=== PATIENT | female | born 1930 | race Two or more races ===

== ENCOUNTER 2017-07-07 10:25 | Inpatient (IN) | payer MEDICAID, MEDICARE, OTHER ==
[~2017-07-07] VITALS: Ht 147.3 cm; Wt 47.6 kg
--- NOTE | 2017-07-07 10:30 | NUR ---
B RA 878 FROM HOME C/O COUGH C CONGESTION AND POOR APPETITE X1 WEEK RECRUITER. VSS. SEEN BY FOR EVAL. SAFETY AND COMFORT MEASURES PROVIDED. WILL MONITOR. FAMIYL MEMBER REMAINS AT BS.
--- NOTE | 2017-07-07 10:55 | NUR ---
CODE SEPSIS CALLED
[2017-07-07] MEDS ORDERED: ACETAMINOPHEN ES 500 MG TABLET PO ONE (11:00)
[2017-07-07] MEDS ORDERED: IV NS 0.9% 1,000 ML BAG IV ONE (11:00)
[2017-07-07 11:14] LABS: BASOPHILS % (AUTO) 0.1 % (0.0-2.0); HEMATOCRIT 37 % (33-45); HEMOGLOBIN 12.4 g/dL (11.5-14.8); LYMPHOCYTES # (AUTO) 0.9 /CMM (0.8-4.8); LYMPHOCYTES % (AUTO) 11.1 % (20.0-44.0); MEAN CORPUSCULAR HEMOGLOBIN 29 PG (26.0-33.0); MEAN CORPUSCULAR HGB CONC 33 g/dl (31.0-36.0); MEAN CORPUSCULAR VOLUME 89 fL (82-100); MONOCYTES # (AUTO) 0.2 /CMM (0.1-1.30); MONOCYTES % (AUTO) 2.8 % (2.0-12.0); NEUTROPHILS # (AUTO) 7.3 /CMM (1.8-8.9); PLATELET COUNT (AUTO) 135 /CMM (150-450); RDW COEFFICIENT OF VARIATION 13.4 (11.5-15.0); RED BLOOD CELL COUNT(AUTO) 4.21 MIL/uL (4.0-5.2); WHITE BLOOD COUNT (AUTO) 8.5 K/uL (4.3-11.0)
--- NOTE | 2017-07-07 11:18 | NUR ---
IV ACCESS STARTED. BLOOD AND CULTURES DRAW. FC INITIATED. PT MEDICATED ORDERED.
[2017-07-07] MEDS ORDERED: ACETAMINOPHEN ES 500 MG TABLET ONE (11:20)
[2017-07-07] MEDS ORDERED: LAMO25TA PO (11:28)
[2017-07-07] MEDS ORDERED: OLAN7.5T3 PO (11:28)
--- NOTE | 2017-07-07 11:30 | NUR ---
URBANO AT BS.
[2017-07-07 11:33] LABS: TROPONIN I < 0.017 ng/mL (0.00-0.056)
[2017-07-07 11:36] LABS: ALANINE AMINOTRANSFERASE 40 U/L (12-78); ALKALINE PHOSPHATASE 81 U/L (46-116); ASPARTATE AMINOTRANSFERASE 37 U/L (15-37); BILIRUBIN,DIRECT 0.1 mg/dL (0.0-0.2); BILIRUBIN,TOTAL 0.7 mg/dL (0.2-1.0); CALCIUM, SERUM 9.2 mg/dL (8.5-10.1); CARBON DIOXIDE 25 mmol/L (21-32); CHLORIDE 102 mmol/L (98-107); CREATININE 1.2 mg/dL (0.6-1.3); GLUCOSE 119 mg/dL (74-106); POTASSIUM 3.5 mmol/L (3.5-5.1); SODIUM SERUM 140 mmol/L (136-145); TOTAL PROTEIN, SERUM 7.2 g/dL (6.4-8.2); UREA NITROGEN, BLOOD 20 mg/dL (7-18)
[2017-07-07 11:45] LABS: INR 0.96 (0.87-1.13)
[2017-07-07 11:58] LABS: APPEARANCE,URINE CLEAR (CLEAR); BILIRUBIN,URINE NEGATIVE (NEGATIVE); BLOOD, URINE TRACE-INTA Ery/uL (NEGATIVE); COLOR,URINE YELLOW (YELLOW); KETONES,URINE TRACE (NEGATIVE); LEUKOCYTE ESTERASE ,URINE NEGATIVE (NEGATIVE); NITRITE, URINE NEGATIVE (NEGATIVE); PROTEIN,URINE TRACE mg/dl (NEGATIVE); UGLUCOSE NEGATIVE (NEGATIVE); UROBILINOGEN,URINE 0.2 EU/dL (0.2)
[2017-07-07] MEDS ORDERED: VANCOMYCIN 1 GM in IV D5W 250 ML IV ONE (12:30)
[2017-07-07] MEDS ORDERED: MEROPENEM 1 G in IV NS 0.9% 100 ML IV ONE (12:30)
[2017-07-07 12:48] LABS: BACTERIA,URINE Rare /HPF (None Seen); RBC,URINE 0-2 /HPF (0-2); SQUAMOUS EPITHELIAL CELL,UR Rare /HPF (None Seen); WBC,URINE 0-2 /HPF (0-3)
--- NOTE | 2017-07-07 12:57 | NUR ---
REPORT GIVEN TO ALLISON CERVANTES FOR TELE [id number].
--- NOTE | 2017-07-07 12:58 | NUR ---
CHEMICAL PROCESS ENGINEER REPORT NOTE TELEPHONE REPORT RECEIVED FROM BILLY GOOD.
[2017-07-07 13:20] VITALS: BP 110/63
--- NOTE | 2017-07-07 13:20 | NUR ---
STREET AND BUILDING DECORATOR ADMITTING NOTE PATIENT ARRIVED TO THE UNIT VIA GURNEY ACCOMPANIED BY PACKAGING SPECIALIST, COLOR ROOM ATTENDANT AND THE FAMILY. PATIENT IS A/O X1, FORGETFUL, ANXIOUS AND CONFUSED. ATTEMPTED TO PULL OUT THE IV LINE. PATIENT EDUCATED NOT TO PULL ON THE LINES AND FAMILY AT THE BEDSIDE IS INSTRUCTED TO KEEP REORIENTING THE PATIENT AND REMIND THE PATIENT NOT TO PULL ON LINES. PATIENT IS ASSISTED TO BED. BED IS LOCKED, IN LOWEST POSITION, SIDE RAILS UP X3, BED ALARM IS ON. PATIENT'S SON IS AT THE BEDSIDE. CALL LIGHT WITHIN REACH. PATIENT/FAMILY EDUCATED TO CALL FOR ASSISTANCE USING THE CALL LIGHT. FAMILY VERBALIZED FULL UNDERSTANDING OF THE TEACHINGS. WILL CONTINUE TO ASSESS/MONITOR THE PATIENT THROUGHOUT THE SHIFT.
[2017-07-07] MEDS ORDERED: HYDROCODONE/APAP 5/325MG 1 EACH TABLET PO PRN (14:30)
[2017-07-07] MEDS ORDERED: MAGNESIUM HYDROXIDE 30 ML UDC PO PRN (14:30)
[2017-07-07] MEDS ORDERED: Z GUARD REMEDY 2 OZ OINT TP PRN (14:30)
[2017-07-07] MEDS ORDERED: ONDANSETRON HCL/PF 4 MG/2 ML VIAL IVP PRN (14:30)
[2017-07-07] MEDS ORDERED: MAG HYDROX/AL HYDROX/SIMETH 30 ML UDC PO PRN (14:30)
[2017-07-07] MEDS ORDERED: ZOLPIDEM TARTRATE 5 MG TABLET PO PRN (14:30)
[2017-07-07] MEDS ORDERED: ACETAMINOPHEN 325 MG TABLET PO PRN (14:30)
[2017-07-07 16:00] VITALS: BP 121/69
[2017-07-07] MEDS ORDERED: HALOPERIDOL LACTATE INJ 5 MG/ML VIAL IM ONE (16:00)
[2017-07-07] MEDS: IV D5/0.45 NACL 1,000 ML IV PRN (16:01)
[2017-07-07] MEDS: CEFTRIAXONE 1 G in IV D5W 50 ML IV SCH (16:04)
--- NOTE | 2017-07-07 16:12 | NUR ---
CUSTOMER RETENTION SPECIALIST NOTE PATIENT IS INCONSOLABLE. ATTEMPTING TO GET OUT OF THE BED, CRYING AND SCREAMING "I NEED TO BE CLEANED" TRYING TO PULL OUT THE CATHETER AND THE IV LINE. DR. CHEATHAM AT THE BEDSIDE. PER DR. CHEATHAM ORDER ADMINISTER HALDOL 0.5 MG ONCE NOW. WILL CARRY OUT THE ORDER ONCE THE DOSE IS VERIFIED BY THE PHARMACY. PATIENT IS ASSISTED TO THE BED. ANNA LI IS CURRENTLY AT THE BEDSIDE.
--- NOTE | 2017-07-07 16:23 | NUR ---
BOATS RENTER NOTE HALDOL ADMINISTERED ORDERED. PATIENT IS IN BED. ANNA LI AT THE BEDSIDE
--- NOTE | 2017-07-07 19:30 | NUR ---
CHEESE SPRAYER OPENING NOTES PT IS IN BED SLEEPING, NO SIGNS OF SOB OR DISTRESS. BREATHING EVENLY AND UNLABORED ON RA. SITTER AT BEDSIDE. TELE MONITOR SHOWS SR66. PARKS CATHETER IS INTACT, WILL CONTINUE TO MONITOR FOR PATENCY. IV ACCESS IS INTACT AND INFUSING. BED IS IN LOW AND LOCKED POSITION, BED ALARM IS ON. WILL CONTINUE TO MONITOR PT.
--- NOTE | 2017-07-07 19:36 | NUR ---
CHICLE GRINDER FEEDER CLOSING NOTE BEDSIDE SBAR REPORT GIVEN. PATIENT IS A/O X1, FORGETFUL, ANXIOUS AND CONFUSED. PATIENT IS ASLEEP IN BED, EASILY AWAKEN. BED IS LOCKED, IN LOWEST POSITION, SIDE RAILS UP X3, BED ALARM IS ON. CALL LIGHT WITHIN REACH. PATIENT EDUCATED TO CALL FOR ASSISTANCE USING THE CALL LIGHT. ENDORSED TO THE MACHINE PULLER FOR CORTEZ.
[2017-07-07 20:00] VITALS: BP 108/64
[2017-07-07 20:06] VITALS: BP 108/64
--- NOTE | 2017-07-07 20:20 | NUR ---
FLAME DEGREASER NOTES CHARGE NURSE FAXED PT INFO TO [facility] FOR EVAL TOMORROW.
[2017-07-08] VITALS (7 sets, daily range): BP systolic 101–126; BP diastolic 60–76
--- NOTE | 2017-07-08 06:37 | NUR ---
TELEPHONE RECORDER CLOSING NOTES PT IS IN BED RESTING, BREATHING EVENLY AND UNLABORED. NO SOB OR DISTRESS. NO ACUTE CHANGES THROUGHOUT MY SHIFT. TELE MONITOR SHOWS SR-[id number]. SITTER AT BEDSIDE. BED IS IN LOW AND LOCKED POSITION, WILL ENDORSE TO DAYSHIFT.
[2017-07-08 07:08] LABS: BASOPHILS % (AUTO) 0.2 % (0.0-2.0); EOSINOPHILS % (AUTO) 0.1 % (0.0-6.0); HEMATOCRIT 33 % (33-45); LYMPHOCYTES # (AUTO) 1.3 /CMM (0.8-4.8); LYMPHOCYTES % (AUTO) 15.4 % (20.0-44.0); MEAN CORPUSCULAR HEMOGLOBIN 30 PG (26.0-33.0); MEAN CORPUSCULAR HGB CONC 33 g/dl (31.0-36.0); MEAN CORPUSCULAR VOLUME 90 fL (82-100); MONOCYTES # (AUTO) 0.3 /CMM (0.1-1.30); MONOCYTES % (AUTO) 3.7 % (2.0-12.0); NEUTROPHILS # (AUTO) 6.9 /CMM (1.8-8.9); NEUTROPHILS % (AUTO) 80.6 % (43.0-81.0); PLATELET COUNT (AUTO) 135 /CMM (150-450); RDW COEFFICIENT OF VARIATION 13.3 (11.5-15.0); RED BLOOD CELL COUNT(AUTO) 3.68 MIL/uL (4.0-5.2); WHITE BLOOD COUNT (AUTO) 8.6 K/uL (4.3-11.0)
[2017-07-08 07:31] LABS: ALANINE AMINOTRANSFERASE 30 U/L (12-78); ALBUMIN 2.4 g/dL (3.4-5.0); ALKALINE PHOSPHATASE 85 U/L (46-116); ASPARTATE AMINOTRANSFERASE 27 U/L (15-37); BILIRUBIN,TOTAL 0.5 mg/dL (0.2-1.0); CALCIUM, SERUM 8.7 mg/dL (8.5-10.1); CARBON DIOXIDE 24 mmol/L (21-32); CHLORIDE 109 mmol/L (98-107); CREATININE 0.9 mg/dL (0.6-1.3); GLUCOSE 100 mg/dL (74-106); MAGNESIUM 1.7 mg/dL (1.8-2.4); PHOSPHORUS 2.1 mg/dL (2.5-4.9); POTASSIUM 3.2 mmol/L (3.5-5.1); SODIUM SERUM 143 mmol/L (136-145); TOTAL PROTEIN, SERUM 6.1 g/dL (6.4-8.2); UREA NITROGEN, BLOOD 12 mg/dL (7-18)
[2017-07-08 07:34] LABS: CHOLESTEROL 114 mg/dL (<200); HDL CHOLESTEROL 46 mg/dL (40-60); LDL 53 mg/dL (0-99); TRIGLYCERIDES 59 mg/dL (30-150)
--- NOTE | 2017-07-08 08:00 | NUR ---
DOCK SUPERINTENDENT OPENINGS NOTES PT IS STABLE AND RESTING IN BED. A/OX1, PT IS CONFUSED. NO S/S OF DISTRESS OR SOB. PT DOES NOT APPEAR TO BE IN PAIN AT THIS TIME. PT IS ON RA, WITH O2 SAT WNL. PER FAMILY REQUEST, PT IS TO BE ON NPO EXCEPT MEDS, ALTHOUGH PT FAILED SWALLOW EVAL ON 07/07. MEDS TO BE GIVEN THROUGH G-TUBE. G-TUBE PATENT, 10 ML OF RESIDUAL FOUND. PARKS CATH IN PLACE. PER TERADATA DEVELOPER REPORT, PT IS TO RECEIVE PSYCH CONSULT AND SWALLOW EVAL. ADDITIONALLY, FAMILY WOULD LIKE THE PT NOT TO BE ON ANY FORM OF PHYSICAL RESTRAINTS. IV ACCESS LOCATED ON RIGHT AC, 20G RUNNING D5 1/2 NS @ 75 ML/HR. SAFETY MEASURES IN PLACE, CALL LIGHT WITHIN REACH. WILL CONTINUE TO MONITOR.
[2017-07-08] MEDS: Magnesium 1GM/D5W 100ML PREMIX 100 ML IV SCH ×2 (09:58→12:03)
[2017-07-08] MEDS: POTASSIUM CHLORIDE 20 MEQ POWDER PACKET PO SCH ×2 (12:04→12:07)
[2017-07-08] MEDS: CEFTRIAXONE 1 G in IV D5W 50 ML IV SCH (14:09)
[2017-07-08] MEDS ORDERED: K PHOS NEUTRAL 250 MG TABLET PO ONE (15:30)
--- NOTE | 2017-07-08 15:33 | NUR ---
RN NOTES RIGHT AC PERIPHERAL IV FOUND TO BE DISLODGED, CATHETER REMOVED. 20 G PERIPHERAL IV INSERTED IN LEFT FOREARM.
[2017-07-08] MEDS: IV D5/0.45 NACL 1,000 ML IV PRN (17:08)
--- NOTE | 2017-07-08 18:39 | NUR ---
RN CLOSING NOTES PT IS IN BED RESTING. A/OX2, SITTER IS AT BEDSIDE. NO S/S OF DISTRESS OR SOB. PT HAS NO C/O PAIN AT THIS TIME. TELE MONITOR READING SINUS RHYTHM THROUGHOUT THE DAY. RECEIVED NOTIFICATION FROM DEVELOPMENT SPEC OF RECOMMENDATION TO ADD A MULTI VITAMIN AND THIAMINE TO MEDICATION LIST. MAGNESIUM, POTASSIUM AND PHOS REPLACED TODAY. PARKS CATHETER STILL REMAINS PATENT. SAFETY MEASURES IN PLACE, CALL LIGHT WITHIN REACH. WILL ENDORSE TO SCRUBBER MACHINE TENDER FOR CORTEZ.
--- NOTE | 2017-07-08 19:30 | NUR ---
RN NOTES RECEIVED PATIENT UP IN CHAIR; SITTER AT BEDSIDE. AO X 1, ABLE TO MAKE NEEDS KNOWN. NO ACUTE DISTRESS NOTED. DENIES ANY PAIN AT THIS TIME. EASILY UPSET; REASSURANCE GIVEN. TELE READING SINUS HR 76. IV SITE PATENT, INTACT; IVF INFUSING ORDERED. PARKS CATHETER PATENT, INTACT; DRAINING CLEAR YELLOW URINE. SAFETY REMINDERS GIVEN. LOW BED IN USE WITH BILATERAL UPPER SIDE RAILS UP. CALL LIGHT BUTTON WITHIN EASY REACH. WILL CONTINUE TO MONITOR.
[2017-07-08] MEDS ORDERED: OLANZAPINE 2.5 MG TABLET PO SCH ×2 (20:00→20:30)
[2017-07-08] MEDS ORDERED: OLANZAPINE 2.5 MG TABLET PO PRN ×2 (20:00→20:30)
[2017-07-08] MEDS ORDERED: OLANZAPINE 2.5 MG TABLET ONE (20:24)
--- NOTE | 2017-07-08 22:30 | NUR ---
RN NOTES DR. ORTEGA MADE AWARE OF PATIENT'S PRODUCTIVE COUGH WITH NEW ORDER FOR ROBITUSSIN 10 ML PO Q 6 HOURS PRN; NOTED AND CARRIED OUT.
[2017-07-09] VITALS: BP 122/69
[2017-07-09] MEDS ORDERED: GUAIFENESIN/CODEINE 10 ML UDC PO PRN (01:00)
[2017-07-09 04:00] VITALS: BP 104/55
--- NOTE | 2017-07-09 06:14 | NUR ---
RN NOTES PATIENT ASLEEP, EASILY AROUSABLE. RESPIRATIONS EVEN. NO SIGNS OF PAIN NOTED. DUE MEDS GIVEN WITH NO ASE NOTED. NEEDS ATTENDED. KEPT CLEAN AND DRY. SAFETY PRECAUTIONS AND COMFORT MEASURES IN PLACE. WILL GIVE REPORT TO DAY SHIFT FOR CONTINUITY OF CARE.
[2017-07-09 07:31] LABS: CALCIUM, SERUM 8.1 mg/dL (8.5-10.1); CARBON DIOXIDE 23 mmol/L (21-32); CHLORIDE 112 mmol/L (98-107); CREATININE 0.7 mg/dL (0.6-1.3); GLUCOSE 102 mg/dL (74-106); MAGNESIUM 1.9 mg/dL (1.8-2.4); PHOSPHORUS 2.9 mg/dL (2.5-4.9); POTASSIUM 3.4 mmol/L (3.5-5.1); SODIUM SERUM 145 mmol/L (136-145); UREA NITROGEN, BLOOD 10 mg/dL (7-18)
--- NOTE | 2017-07-09 07:46 | NUR ---
RN NOTES RECEIVED PT. PT IS STABLE AND RESTING IN BED. A/OX1, PT IS CONFUSED. SITTER AT BEDSIDE. NO S/S OF RESPIRATORY DISTRESS OR SOB. PT DOES NOT APPEAR TO BE IN PAIN AT THIS TIME. IV ACCESS LOCATED ON LEFT FOREARM 22G RUNNING D5 1/2 NS AT 75 ML/HR. PARKS CATH IN PLACE AND PATENT. PER HELMET HAT SWEATBAND PUNCHER REPORT, PT IS NON COMPLIANT WITH PO MEDICATIONS. WILL F/U WITH PT AND FAMILY AND PERFORM MEDICATION COMPLIANCE TEACHING. SAFETY MEASURES IN PLACE, CALL LIGHT WITHIN REACH. WILL CONTINUE TO MONITOR.
[2017-07-09] MEDS ORDERED: POTASSIUM CHLORIDE 20 MEQ POWDER PACKET PO SCH (11:30)
--- NOTE | 2017-07-09 12:44 | NUR ---
RN NOTES KLOR CON ADMINISTERED. BARCODE UNABLE TO SCAN.
[2017-07-09] MEDS ORDERED: OLANZAPINE 2.5 MG TABLET PO SCH ×2 (13:00→20:00)
--- NOTE | 2017-07-09 13:29 | NUR ---
RN NOTES PT IS NON COMPLIANT WITH PO MEDICATIONS. PT FOUND POCKETING MEDICATIONS IN HER CHEEK ON PREVIOUS NIGHT 07/08/17. PER REQUEST OF FAMILY, MEDICATIONS TO BE GIVEN CRUSHED AND DILUTED IN JUICE/TEA/COFFEE WITH MEALS. ZYPREXA DUE AT 1300 PULLED FROM [employer] AND WILL BE GIVEN THE NEXT TIME THAT THE PT REQUESTS FLUIDS.
[2017-07-09] MEDS: CEFTRIAXONE 1 G in IV D5W 50 ML IV SCH (14:40)
--- NOTE | 2017-07-09 15:14 | NUR ---
RN NOTES PARKS CATHETER D/C PER ORDER FROM Elie HEALY NP. PT REFUSED LUNCH STATING THAT " I'M NOT HUNGRY, BREAKFAST WAS NOT TOO LONG AGO. SPOKE WITH DAUGHTER, PATRICK, AND SON, ZAHRA FLOR. SON WILL BE ARRIVING ON UNIT TO PROVIDE FOOD FOR PT AND TO ASSIST PT WITH FEEDING.
[2017-07-09] MEDS ORDERED: OLANZAPINE 2.5 MG TABLET PO PRN (18:00)
--- NOTE | 2017-07-09 18:30 | NUR ---
RN NOTES PT IS IN BEDSIDE CHAIR RESTING. A/OX2, PT IS CONFUSED. PRIMARILY CITIZEN OF [place] SPEAKING, HOWEVER UNDERSTANDS AND SPEAKS SOME [place]. SITTER IS AT BEDSIDE. PT HAS BECOME FREQUENTLY AGITATED THROUGHOUT THE DAY, PRIMARILY IN THE LATE AFTERNOON. ZYPREXA PRN ORDERED, HOWEVER PT IS NON COMPLIANT WITH PO MEDICATIONS. PER FAMILY REQUEST, NO RESTRAINTS TO BE USED ON PT. REQUEST THAT PO MEDICATIONS BE DILUTED IN JUICE, COFFEE OR TEA IN ORDER FOR COMPLIANCE. F/C REMOVED PER MD ORDER. SAFETY MEASURES IN PLACE, CALL LIGHT WITHIN REACH. WILL ENDORSE TO CUSTOMER CONTACT SPECIALIST FOR CORTEZ.
--- NOTE | 2017-07-09 19:20 | NUR ---
MS/RN OPENING NOTES PT AWAKE, SITTING QUIETLY IN THE CHAIR IN HER ROOM. A/OX1, ON ROOM AIR, BREATHING EVEN AND UNLABORED. SITTER AT BEDSIDE. NEEDS REDIRECTION. NO S/S OF SOB OR PAIN. APPEARS COMFORTABLE AND SMILING. IV TO LFA IN PLACE, REFUSED TO BE FLUSHED. BED IN LOW/LOCKED POSITION WITH CALL LIGHT IN REACH. SIDE RAILS UPX2. WILL CONTINUE TO MONITOR
--- NOTE | 2017-07-09 19:45 | NUR ---
MS/RN NOTES PT BECOMING AGITATED. WALKING AROUND THE HALLS ASKING TO BE LEFT ALONE. WANTS TO SIT IN CHAIR BY HERSELF. EVENTUALLY REDIRECTED TO ROOM AND PT SITTING IN CHAIR THEN MOVED TO EDGE OF THE BED. WANTS TO BE LEFT ALONE, REFUSING ASSESSMENT AND VITALS SIGNS. DOES NOT WANT TO BE TOUCHED.
--- NOTE | 2017-07-09 20:48 | NUR ---
MS/RN NOTES ANOTHER BELL MAKER ABLE TO CONVINCE PT TO TAKE VITALS SIGNS.
[2017-07-09 20:50] VITALS: BP 137/87
[2017-07-09] MEDS ORDERED: OLANZAPINE 10 MG TABLET PO SCH (22:00)
[2017-07-09] MEDS ORDERED: LamoTRIgine 25 MG TABLET PO SCH (22:00)
--- NOTE | 2017-07-09 22:32 | NUR ---
MS/RN NOTES PT SITTING QUIETLY IN CHAIR JUST OUTSIDE BEDROOM. SITTER NEARBY. PT REQUESTING SOME WATER. PM MEDICATIONS CRUSHED AND MIXED WITH WATER. PT TOOK WITH NO COMPLICATIONS.
--- NOTE | 2017-07-10 07:15 | NUR ---
MS RN OPENING NOTES RECEIVED PT FROM NIGHTSHIFT NURSE RESTING IN BED AND IN STABLE CONDITION. PT IS A/O X1-2. NO SOB OR SIGNS OF DISTRESS NOTED. BREATHING IS EVEN AND UNLABORED. PT IS COOPERATIVE AND NOT AGITATED AT THIS TIME. IV NOTED ON LEFT FA 22G INFUSING D5 1/2NS. IV IS PATENT AND INTACT. NO REDNESS OR SIGNS OF INFILTRATION NOTED. BED IN LOW LOCKED POSITION, SIDE RAILS UP X2, CALL LIGHT WITHIN REACH. SITTER AT BEDSIDE. WILL CONTINUE TO MONITOR.
--- NOTE | 2017-07-10 07:20 | NUR ---
MS/RN CLOSING NOTES PT ASLEEP, RESTING COMFORTABLY IN BED. SITTER AT BEDSIDE. ON ROOM AIR BREATHING EVEN AND UNLABORED. NO APPARENT DISTRESS NOTED AND NO COMPLAINTS OF PAIN. PT REFUSED ASSESSMENT DURING SHIFT. NEEDS REPETITIVE REDIRECTION. PT SLEPT APPROX 6 HOURS LAST NIGHT. IV TO LFA IN PLACE. NO SIGNIFICANT CHANGES OVERNIGHT. BED IN LOW/LOCKED POSITION WITH CALL LIGHT IN REACH. SIDE RAILS UPX3. ENDORSED TO AM SHIFT CORTEZ.
[2017-07-10 08:00] VITALS: BP 133/80
[2017-07-10] MEDS ORDERED: THIAMINE HCL 100 MG TABLET PO SCH (09:00)
[2017-07-10] MEDS ORDERED: MULTIVITAMINS,THERAGRAN 1 UDTAB TABLET PO SCH (09:00)
[2017-07-10 09:27] LABS: BASOPHILS % (AUTO) 0.5 % (0.0-2.0); EOSINOPHILS % (AUTO) 0.7 % (0.0-6.0); HEMATOCRIT 38 % (33-45); HEMOGLOBIN 12.5 g/dL (11.5-14.8); LYMPHOCYTES # (AUTO) 1.4 /CMM (0.8-4.8); LYMPHOCYTES % (AUTO) 28.4 % (20.0-44.0); MEAN CORPUSCULAR HEMOGLOBIN 30 PG (26.0-33.0); MEAN CORPUSCULAR HGB CONC 33 g/dl (31.0-36.0); MEAN CORPUSCULAR VOLUME 90 fL (82-100); MONOCYTES # (AUTO) 0.3 /CMM (0.1-1.30); MONOCYTES % (AUTO) 6.3 % (2.0-12.0); NEUTROPHILS # (AUTO) 3.1 /CMM (1.8-8.9); NEUTROPHILS % (AUTO) 64.1 % (43.0-81.0); PLATELET COUNT (AUTO) 284 /CMM (150-450); RDW COEFFICIENT OF VARIATION 12.8 (11.5-15.0); RED BLOOD CELL COUNT(AUTO) 4.18 MIL/uL (4.0-5.2); WHITE BLOOD COUNT (AUTO) 4.8 K/uL (4.3-11.0)
[2017-07-10 09:45] LABS: CALCIUM, SERUM 9.3 mg/dL (8.5-10.1); CARBON DIOXIDE 27 mmol/L (21-32); CHLORIDE 108 mmol/L (98-107); GLUCOSE 140 mg/dL (74-106); MAGNESIUM 1.8 mg/dL (1.8-2.4); PHOSPHORUS 2.8 mg/dL (2.5-4.9); POTASSIUM 3.7 mmol/L (3.5-5.1); SODIUM SERUM 146 mmol/L (136-145); UREA NITROGEN, BLOOD 10 mg/dL (7-18)
[2017-07-10] MEDS ORDERED: OLAN2.5T3 PO (11:21)
[2017-07-10] MEDS ORDERED: LEVO500T15 PO (11:21)
[2017-07-10] MEDS ORDERED: LEVOFLOXACIN (500MG) 500 MG TABLET PO SCH (12:00)
--- NOTE | 2017-07-10 13:23 | NUR ---
MS BUSINESS CONTINUITY SPECIALIST NOTES PT WAS DISCHARGED FROM UNIT IN STABLE CONDITION. ALL NEEDS WERE MET DURING SHIFT AND ORDERS CARRIED OUT ACCORDINGLY. ALL DUE MEDS GIVE. DISCHARGE INSTRUCTIONS WERE PROVIDED TO PATIENT'S SON BASIA. PRESCRIPTION WAS ALSO GIVEN TO BASIA. PT LEFT WITH ALL HER BELONGINGS. SHE WAS SAFELY WHEELED OUT OF THE HOSPITAL AND TO HER LYFT VEHICLE BY THE ANGLE DOZER OPERATOR. IV WAS SUCCESSFULLY REMOVED WITHOUT ANY COMPLICATIONS
[2017-07-11] MEDS ORDERED: LEVOFLOXACIN (250MG) 250 MG TABLET PO SCH (12:00)
== END 2017-07-10 13:30 | disposition home or self-care (01) | DRG 469 ==
LOC: ER 10:27 → TELE 12:36 → MED 07-09 09:22
PROVIDERS: ADMIT Internal Medicine; ATTEND Internal Medicine
DX: N17.0 Acute kidney failure with tubular necrosis (principal); J15.6 Pneumonia due to other Gram-negative bacteria; G93.40 Encephalopathy, unspecified; J15.9 Unspecified bacterial pneumonia; G30.9 Alzheimer's disease, unspecified; D69.6 Thrombocytopenia, unspecified; F02.80 Dementia in other diseases classified elsewhere, unspecified severity, without behavioral disturbance, psychotic disturbance, mood disturbance, and anxiety; Z88.8 Allergy status to other drugs, medicaments and biological substances; Z90.710 Acquired absence of both cervix and uterus; F31.9 Bipolar disorder, unspecified; J98.11 Atelectasis
CPT/HCPCS: 36415; 71010-TC; 80048-TC; 80053-TC; 80061-TC; 80076-TC; 81000-TC; 83605-TC; 83735-TC; 84100-TC; 84484-TC; 85025-TC; 85730-TC; 87040-TC; 87081-TC; 87086-TC; 87400; 92611-TC; A4606; J0696; J1630; J2185; J3370; J3475; J3490; J7030; J7060; Z7610

== ENCOUNTER 2018-01-17 14:38 | Inpatient (IN) | payer OTHER ==
[~2018-01-17] VITALS: Ht 162.6 cm; Wt 49.9 kg
[~2018-01-17 14:38] MED LIST: LAMO25TA PO; LEVO500T2 PO; OLAN2.5T3 PO; OLAN7.5T3 PO
--- NOTE | 2018-01-17 14:40 | NUR ---
[id number] FROM HOME: BIZARRE BEHAVIOR. Hx OF DEMENTIA. NAD NOTED. RR EVEN AND UNLABORED. PT PLACED IN GOWN AND MONITOR. PENDING MD STEVE.
[2018-01-17] MEDS ORDERED: LORAZEPAM INJ 2 MG/ML VIAL ONE (14:46)
[2018-01-17] MEDS ORDERED: IV NS 0.9% 500 ML BAG IV ONE (15:00)
[2018-01-17] MEDS ORDERED: LORAZEPAM INJ 2 MG/ML VIAL IV ONE (15:00)
[2018-01-17 15:02] LABS: BASOPHILS % (AUTO) 0.7 % (0.0-2.0); EOSINOPHILS % (AUTO) 0.3 % (0.0-6.0); HEMATOCRIT 35 % (33-45); LYMPHOCYTES % (AUTO) 27.7 % (20.0-44.0); MEAN CORPUSCULAR HGB CONC 34 g/dl (31.0-36.0); MEAN CORPUSCULAR VOLUME 88 fL (82-100); MONOCYTES # (AUTO) 0.3 /CMM (0.1-1.30); MONOCYTES % (AUTO) 9.2 % (2.0-12.0); NEUTROPHILS # (AUTO) 2.5 /CMM (1.8-8.9); NEUTROPHILS % (AUTO) 62.1 % (43.0-81.0); PLATELET COUNT (AUTO) 176 /CMM (150-450); RDW COEFFICIENT OF VARIATION 13.1 (11.5-15.0); WHITE BLOOD COUNT (AUTO) 3.8 K/uL (4.3-11.0)
--- NOTE | 2018-01-17 15:02 | NUR ---
URINE OBTAINED SENT TO LAB FOR PICKUP
[2018-01-17 15:16] LABS: CALCIUM, SERUM 8.6 mg/dL (8.5-10.1); CARBON DIOXIDE 22 mmol/L (21-32); CHLORIDE 106 mmol/L (98-107); GLUCOSE 166 mg/dL (74-106); POTASSIUM 3.3 mmol/L (3.5-5.1); SODIUM SERUM 141 mmol/L (136-145); UREA NITROGEN, BLOOD 17 mg/dL (7-18)
[2018-01-17 15:22] LABS: TROPONIN I < 0.017 ng/mL (0.00-0.056)
[2018-01-17 15:26] LABS: APPEARANCE,URINE SL CLOUDY (CLEAR); BILIRUBIN,URINE NEGATIVE (NEGATIVE); BLOOD, URINE 1+ Ery/uL (NEGATIVE); COLOR,URINE YELLOW (YELLOW); KETONES,URINE NEGATIVE (NEGATIVE); LEUKOCYTE ESTERASE ,URINE NEGATIVE (NEGATIVE); NITRITE, URINE NEGATIVE (NEGATIVE); PH,URINE 5.5 (5.0-8.0); PROTEIN,URINE NEGATIVE (NEGATIVE); UGLUCOSE NEGATIVE (NEGATIVE); UROBILINOGEN,URINE 0.2 EU/dL (0.2)
[2018-01-17 15:32] LABS: THYROID STIMULATING HORMONE 2.266 uIU/mL (0.358-3.74)
--- NOTE | 2018-01-17 15:41 | NUR ---
VIRGINIE CALLED SHE WILL BE HERE IN AN HOUR
[2018-01-17 15:43] LABS: BACTERIA,URINE None seen /HPF (None Seen); SQUAMOUS EPITHELIAL CELL,UR Few /HPF (None Seen); WBC,URINE 0-2 /HPF (0-3)
[2018-01-17 16:04] LABS: ALCOHOL, BLOOD < 3 mg/dL (0-0)
[2018-01-17] MEDS ORDERED: OLAN2.5T3 PO (18:31)
--- NOTE | 2018-01-17 18:37 | NUR ---
PT TRANSFERRED TO GPS IN STABLE CONDITION
--- NOTE | 2018-01-17 18:47 | NUR ---
RECEIVED PT. FROM ER ([facility]). PT. ARRIVED ON THE UNIT AT 1847 VIA HOSPITAL BED. PATIENT ADMITTED ON A 5150 HOLD DUE TO GD, DTS, DTO. PER HOLD PT. HAS AGITATED, PARANOID AND EXTREMELY CONFUSED. THE 5150 WAS RECEIVED AND THE DOCUMENTATION APPEARS TO REFLECT THE PRESENTATION OF THE PATIENT. PATIENT IS CURRENTLY LAYING ON HER BED AWAKE, HAS NO S/S OE COMPLAINTS OF PAIN AT THID TIME. ALSO SO SIGNS OF ACUTE DISTRESS NOTED AT THIS TIME. PATIENT'S BREATHING IS UNLABORED WITH EQUAL FALL AND RISE OF THE CHEST. PATIENT IS ORIENTED X1 ON ROOM AIR. PATIENT HAS BEEN ASSISTED WITH TURNING AND REPOSITIONING Q2HRS AND PRN FOR COMFORT AND CIRCULATION. THE PATIENT HAS NO NEEDS AT THIS TIME. PATIENT IS NOTED TO BE DEPRESSED, WITHDRAWN, DISORGANIZED, AGITATED AND ANXIOUS AT THIS TIME. DENIED SI/HI AT THIS TIME. SKIN ASSESSMENT COMPLETED AND PICTURED PLACED IN THE PT'S CHART. THE PATIENT IS UNDER THE CARE OF DR. GERBER AND THE MEDICAL CARE OF DR. YANCEY. THE PATIENT'S BELONGING WERE INVENTORIED AND CHECKED FPR CONTRABANDS. PATIENT'S ADVANCED DIRECTIVE PREFERENCES, IMMUNIZATIONS QUESTIONNAIRE AND NECESSARY PAPERWORK ARE COMPLETED AND PLACED IN THE PT'S CHART. PATIENT WAS ORIENTED TO THE ROOM, FLOOR AND STAFF. EDUCATED PT. ON THE USAGE OF THE CALL ROJAS. BED IS LOCKED AND LOW, BEDSIDES RAILS ARE UP X2 FOR SAFETY. WILL CONTINUE TO MONITOR Q15MNS, WITH THE HELP OF STAFF, FOR SAFETY.
[2018-01-17] MEDS ORDERED: ACETAMINOPHEN 325 MG TABLET PO PRN (19:00)
[2018-01-17] MEDS ORDERED: MAGNESIUM HYDROXIDE 30 ML UDC PO PRN (19:00)
[2018-01-17] MEDS ORDERED: MAG HYDROX/AL HYDROX/SIMETH 30 ML UDC PO PRN (19:00)
[2018-01-17 20:28] VITALS: BP 99/57
[2018-01-17] MEDS: LORAZEPAM 0.5 MG TABLET PO PRN (22:26)
--- NOTE | 2018-01-17 22:26 | NUR ---
GPS NOTE C/O AGITATION, ANXIETY. LORAZEPAM 1 MG GIVEN ORDERED. WILL REEVALUATE PATIENT AND CONTINUE TO MONITOR FOR SAFETY.
[2018-01-18] MEDS: TEMAZEPAM 7.5 MG CAPSULE PO PRN ×2 (00:04→21:54)
--- NOTE | 2018-01-18 00:04 | NUR ---
GPS NOTE C/O " UNABLE TO FALL ASLEEP. PER PT REQUEST RESTORIL 7.5 MG PO GIVEN ORDERED. WILL CONTINUE TO MONITOR PT. FOR SAFETY.
[2018-01-18 08:00] VITALS: BP 109/92
--- NOTE | 2018-01-18 08:56 | NUR ---
Dr. Kay notified that the pt. is under his service.
--- NOTE | 2018-01-18 09:12 | NUR ---
Dr. Love made aware that pt. is not under Dr. Kay and under his service and said ok.
[2018-01-18 09:42] LABS: CHOLESTEROL 155 mg/dL (<200); HDL CHOLESTEROL 71 mg/dL (40-60); LDL 79 mg/dL (0-99); TRIGLYCERIDES 43 mg/dL (30-150)
[2018-01-18 09:43] LABS: ALANINE AMINOTRANSFERASE 23 U/L (12-78); ALBUMIN 3.3 g/dL (3.4-5.0); ALKALINE PHOSPHATASE 90 U/L (46-116); ASPARTATE AMINOTRANSFERASE 19 U/L (15-37); BILIRUBIN,TOTAL 0.4 mg/dL (0.2-1.0); CALCIUM, SERUM 8.3 mg/dL (8.5-10.1); CARBON DIOXIDE 26 mmol/L (21-32); CHLORIDE 106 mmol/L (98-107); CREATININE 0.9 mg/dL (0.6-1.3); GLUCOSE 102 mg/dL (74-106); POTASSIUM 3.6 mmol/L (3.5-5.1); SODIUM SERUM 141 mmol/L (136-145); TOTAL PROTEIN, SERUM 7.1 g/dL (6.4-8.2); UREA NITROGEN, BLOOD 14 mg/dL (7-18)
--- NOTE | 2018-01-18 12:40 | NUR ---
SW attempted to contact pts daughter Alejandra [phone] for collateral information. Pts daughter was busy and requested to call back.
--- NOTE | 2018-01-18 12:41 | NUR ---
SW attempted to contact pts marcus Sharma [phone] for collateral information. No answer SW left voicemail.
--- NOTE | 2018-01-18 12:42 | NUR ---
SW received phone call from Krunal Kelly [phone] option 1, N aftercare coordinator to provide SW with his contact info to assist with after care planning once pt is discharged.
--- NOTE | 2018-01-18 13:55 | NUR ---
Pt. is anxious and irritable, ativan 1 mg po not administered pt. is drowsy. Will return and have other RN to witness.
--- NOTE | 2018-01-18 14:11 | NUR ---
At 1330 lost balance while walking in the hallway. Pt. hit her buttocks, pt. able to stand up with assistance. Denied any pain. v/s taken: BP 132/100, UT 70, RR 18, temp 97.9 and oxygen sat 100%. Body check done and no bruise, no abrasions and no wound noted. Addendum: 01/18/18 at 1512 by LOKI LEMA RN Lost balance and fell.
--- NOTE | 2018-01-18 15:16 | NUR ---
Dr. Love made aware of the incident and said to observe. supervisor cooler service notified and son Zachary in the unit and made aware.
--- NOTE | 2018-01-18 15:43 | NUR ---
INITIAL DISCHARGE PLAN: Per pts daughter Alejandra [phone] pt has a home to return to [address] [facility] [id number] . However, pts daughter wants placement options. YUDY informed pts daughter that pt was approved for 6 hospital days by [facility] and that SNF placement would need to be approved by insurance. Pts daughter stated that pt has Medicare/[employer] insurance that has been effective as of January. YUDY advised pts daughter to speak with admissions regarding insurance coverage. SW will help form a safe and proper discharge in collaboration with .
[2018-01-18 16:00] VITALS: BP 100/80
[2018-01-18] MEDS ORDERED: risperiDONE 0.25 MG TABLET PO SCH (18:00)
--- NOTE | 2018-01-18 19:30 | NUR ---
GPS RN NOTE, RECEIVED PATIENT AWAKE AND IN BED, NO S/S OR COMPLAINTS OF PAIN AT THIS TIME. PATIENT DISPLAYING NO S/S OF APPARENT DISTRESS AT THIS TIME. PATIENT BREATHING IS UNLABORED WITH EQUAL RISE AND FALL OF THE CHEST. PATIENT ALERT AND ORIENTED X 1 WITH A SPO2 98%. PATIENT IS MED COMPLIANT, DISORGANIZED, CONFUSED, SOMALI SPEAKING ONLY, ISOLATIVE, COOPERATIVE, NEEDS REORIENTATION. PATIENT DENIES SUICIDE IDEATIONS AND HOMICIDAL IDEATIONS AT THIS TIME. PATIENT ASSISTED WITH TURNING AND REPOSITIONING Q2HR AND PRN FOR COMFORT AND CIRCULATION. PATIENT HAS NO NEEDS AT THIS TIME. PATIENT EDUCATED ON THE USE OF THE CALL ROJAS. PATIENT BED SIDE RAILS UP X2 FOR SAFETY, BED IS LOCKED AND LOW WILL CONTINUE TO MONITOR AND MAINTAIN AND MAINTAIN SAFETY.
[2018-01-18 20:30] VITALS: BP 111/65
--- NOTE | 2018-01-18 21:54 | NUR ---
GPS RN NOTE, PATIENT HAS A COMPLAINT OF NOT BEING ABLE TO SLEEP AND IS REQUESTING RESTORIL AT THIS TIME. PATIENT VITAL SIGNS ARE STABLE. GAVE RESTORIL 7.5 MG PO HS. WILL REASSESS FOR INSOMNIA AND I WILL CONTINUE TO MONITOR THIS PATIENT.
[2018-01-19 08:00] VITALS: BP 140/77
[2018-01-19] MEDS: risperiDONE 0.25 MG TABLET PO SCH ×2 (09:19→17:14)
[2018-01-19] MEDS: RIVASTIGMINE TARTRATE 1.5 MG CAPSULE PO SCH ×2 (09:19→21:01)
--- NOTE | 2018-01-19 15:21 | NUR ---
OFFICE VISIT: pts daughter Alejandra [phone] spoke with SW regarding discharge plan and concerns with medication being administered to pt. Pts daughter stated to SW that pt will return home with 8 hour care that has been established for pt Mon-Fri. Pts daughter asked SW to speak to MD regarding medication changes and discharge as she has attempted to contact and has been unsuccessful.
[2018-01-19 15:54] VITALS: BP 108/77
--- NOTE | 2018-01-19 18:55 | NUR ---
gps bid clerk: psych visit son and daughter here. seen by dr. stuart with new orders. orders acknowledged. md spoke to family and updated plan of care. pt is on 14 days hold now.
[2018-01-19 19:58] VITALS: BP 110/69
[2018-01-19] MEDS: risperiDONE 1 MG TABLET PO SCH (21:01)
[2018-01-20 08:00] VITALS: BP 103/53
[2018-01-20] MEDS: RIVASTIGMINE TARTRATE 1.5 MG CAPSULE PO SCH ×2 (08:50→20:49)
[2018-01-20] MEDS: risperiDONE 0.25 MG TABLET PO SCH (08:50)
--- NOTE | 2018-01-20 11:30 | NUR ---
REFUSED MRSA SMEAR ALTHOUGH ON SITE COORDINATOR PRESENT.
--- NOTE | 2018-01-20 14:41 | NUR ---
PER DTR'S REQUEST PT. TRANSFERRED TO ANOTHER [id number].ADDITIONALLY INFORMED DTR.WE NEED A MRSA SMEAR AND DTR. SAYS MOM WILL PROBABLY NOT COOPERATE.
[2018-01-20 16:25] VITALS: BP 117/82
[2018-01-20 20:00] VITALS: BP 92/52
[2018-01-20] MEDS: risperiDONE 1 MG TABLET PO SCH (20:49)
[2018-01-20] MEDS: TEMAZEPAM 7.5 MG CAPSULE PO PRN (23:09)
--- NOTE | 2018-01-20 23:10 | NUR ---
Temazepam 7.5 mg cap 1 po given, patient not sleeping
--- NOTE | 2018-01-20 23:27 | NUR ---
OFFERED TEMAZEPAM 7.5 MG CAP 1 PO, PATIENT REFUSED 3X. PATIENT NOT SLEEPING, RAISED UP BOTH ARMS IN THE AIR ON AND OFF. WILL CONTINUE TO MONITOR FOR SAFETY.
--- NOTE | 2018-01-20 23:27 | NUR ---
DAUGHTER CALLED ASKING IF HER MOTHER TOOK THE NIGHT MEDICATIONS, PATIENT WAS MED COMPLIANT.
[2018-01-21 08:00] VITALS: BP 120/71
[2018-01-21] MEDS: risperiDONE 0.25 MG TABLET PO SCH (08:35)
[2018-01-21] MEDS: RIVASTIGMINE TARTRATE 1.5 MG CAPSULE PO SCH ×2 (08:35→21:21)
[2018-01-21] MEDS: LORAZEPAM 0.5 MG TABLET PO PRN (15:00)
[2018-01-21 16:16] VITALS: BP 137/60
[2018-01-21 20:04] VITALS: BP 135/54
[2018-01-21] MEDS: risperiDONE 1 MG TABLET PO SCH (21:21)
[2018-01-22 08:00] VITALS: BP 109/83
[2018-01-22] MEDS: RIVASTIGMINE TARTRATE 1.5 MG CAPSULE PO SCH (08:13)
[2018-01-22] MEDS: risperiDONE 0.25 MG TABLET PO SCH (08:13)
--- NOTE | 2018-01-22 09:52 | NUR ---
UR NOTE: YUDY contacted SHAHZAD SHELLEY COMMAND AND CONTROL SPECIALIST WITH [facility] AUTH#[id number] DIRECT LINE [phone] FAX [phone] to do verbal clinical review. YUDY left verbal clinical review via voicemail.
--- NOTE | 2018-01-22 11:45 | NUR ---
GPS DISBURSING OFFICER: NOTES DR. GERBER ON THE PHONE AND UPDATED PT BEHAVIOR AND INFORMED ME THAT HE WILL DISCHARGE THE PT THIS AFTERNOON AND WILL WRITE DOWN THE PRESCRIPTION. SON HERE AND MADE AWARE OF D'C PLANNING TODAY. AWAITING FOR PRESCRIPTION AND ORDER.
--- NOTE | 2018-01-22 12:44 | NUR ---
GPS TRIP FOLLOWER: NOTES DR. YANCEY NOTIFIED AND MADE AWARE RE: D'C HOME TODAY BY PSYCHIATRIST, SPOKE TO HIM OVER THE PHONE AND NO PRESCRIPTION NEEDED FOR MEDICAL PART.
--- NOTE | 2018-01-22 13:11 | NUR ---
GPS BAND LOG MILL AND CARRIAGE OPERATOR: NOTES ORDER ACKNOWLEDGED RE: D'C ORDER FROM PSYCHIATRIST, HOLD DISCONTINUED PER CN. PT STABLE FOR DISCHARGE. PT DENIES SI/HI. AWAITING FOR PRESCRIPTIONS.
--- NOTE | 2018-01-22 14:00 | NUR ---
GPS COPPERSMITH APPRENTICE: NOTES PT UNABLE TO SIGN D'C PAPERS DUE TO COGNITIVE IMPAIRMENT. 2 LICENSED STAFF SIGNED ALL D'C PAPERS AND COPIES WILL BE PROVIDED TO FAMILY AND PT WHEN DISCHARGED.
--- NOTE | 2018-01-22 14:43 | NUR ---
gps abalone processor: psych visit dr. stuart here and interviewed pt. pt denies si/hi. denies visual/auditory hallucinations. pt cleared for discharge and stable. prescriptions provided by . awaiting for son or daughter to pick her up.
--- NOTE | 2018-01-22 15:00 | NUR ---
GPS EMAIL MARKETING MANAGER: NOTES AWAITING FOR SON TO PICK HER UP. PT AWARE. PT REFUSED SKIN ASSESSMENT AND PHOTOS.
--- NOTE | 2018-01-22 15:20 | NUR ---
GPS FINAL COAT SPRAYER: DISCHARGED SON HERE TO PROJECT/PRODUCTION MANAGER IMAGING THE PT AND PRESCRIPTIONS GIVEN TO SON, VERBALIZED UNDERSTANDING. PT STABLE FOR DISCHARGE. DENIES SI/HI AT TIME OF DISCHARGE. PT DENIES AUDITORY/VISUAL HALLUCINATIONS AT TIME OF DISCHARGE. ALL BELONGINGS RETURNED TO PT AND ALL D'C PAPERS GIVEN TO SON.
--- NOTE | 2018-01-22 15:55 | NUR ---
DISCHARGE NOTE: Pt was discharged at 3:30pm via private vehicle by pts son Zachary [phone]. Pt will return home to [facility] [address] [place] [id number]. Pt denied suicidal/homicidal ideations and denied visual/auditory hallucinations. Pt appeared in a happy mood with congruent affect. Pts son is going to schedule a follow up appointment with Psychiatrist: Dr. Linda Mcdowell [address] [facility] [facility] [address], [place] [address] and Cigar Binder: Dr. Christ Weinstein [address] [place] [address] [address], [place] [address] . faxed continuing care package to Dr. Linda Mcdowell . The multidisciplinary exitcare form was done, printed, signed, and given to the patient.
--- NOTE | 2018-01-23 14:13 | NUR ---
UR NOTE UPDATED: YUDY contacted Yolis Monzon [phone] and left discharge psych note via voicemail per her request.
== END 2018-01-22 15:20 | disposition home or self-care (01) | DRG 885 ==
LOC: ER 14:52 → GPS 17:45
PROVIDERS: ADMIT Psychiatry & Neurology Psychiatry; ATTEND Psychiatry & Neurology Psychiatry
DX: F29 Unspecified psychosis not due to a substance or known physiological condition (principal); F03.90 Unspecified dementia, unspecified severity, without behavioral disturbance, psychotic disturbance, mood disturbance, and anxiety; F32.9 Major depressive disorder, single episode, unspecified; Z73.6 Limitation of activities due to disability; Z90.710 Acquired absence of both cervix and uterus; Z88.8 Allergy status to other drugs, medicaments and biological substances; Z79.899 Other long term (current) drug therapy; E87.6 Hypokalemia; F41.9 Anxiety disorder, unspecified
CPT/HCPCS: 36415; 70450-TC; 71045-TC; 80048-TC; 80053-TC; 80061-TC; 80305; 81000-TC; 84443-TC; 84484-TC; 85025-TC; 87081-TC; A4606; G0480; J2060; J7040; Z7610

== ENCOUNTER 2018-03-14 11:54 | Inpatient (IN) | payer MEDICARE, MEDICAID ==
[~2018-03-14] VITALS: Ht 160 cm; Wt 47.6 kg
[~2018-03-14 11:54] MED LIST changes: -LEVO500T2 PO; -OLAN7.5T3 PO
--- NOTE | 2018-03-14 12:00 | NUR ---
JAC ACHARYA FR[facility] HOME, PT IS RESTLESS AND INCREASINGLY AGITATED. NAD NOTED, VSS, RESP EVEN AND UNLABORED, PT WAS PUT ON MONITOR, WAITING FOR MD STEVE
[2018-03-14 12:21] LABS: BASOPHILS % (AUTO) 0.7 % (0.0-2.0); EOSINOPHILS % (AUTO) 0.8 % (0.0-6.0); HEMATOCRIT 36 % (33-45); HEMOGLOBIN 11.9 g/dL (11.5-14.8); LYMPHOCYTES # (AUTO) 0.9 /CMM (0.8-4.8); LYMPHOCYTES % (AUTO) 23.4 % (20.0-44.0); MEAN CORPUSCULAR HEMOGLOBIN 30 PG (26.0-33.0); MEAN CORPUSCULAR HGB CONC 33 g/dl (31.0-36.0); MEAN CORPUSCULAR VOLUME 90 fL (82-100); MONOCYTES # (AUTO) 0.2 /CMM (0.1-1.30); MONOCYTES % (AUTO) 5.1 % (2.0-12.0); NEUTROPHILS # (AUTO) 2.7 /CMM (1.8-8.9); PLATELET COUNT (AUTO) 190 /CMM (150-450); RDW COEFFICIENT OF VARIATION 12.9 (11.5-15.0); RED BLOOD CELL COUNT(AUTO) 3.97 MIL/uL (4.0-5.2); WHITE BLOOD COUNT (AUTO) 3.8 K/uL (4.3-11.0)
[2018-03-14 12:31] LABS: CALCIUM, SERUM 8.5 mg/dL (8.5-10.1); CARBON DIOXIDE 25 mmol/L (21-32); CHLORIDE 110 mmol/L (98-107); CREATININE 1.2 mg/dL (0.6-1.3); GLUCOSE 106 mg/dL (74-106); POTASSIUM 3.5 mmol/L (3.5-5.1); SODIUM SERUM 144 mmol/L (136-145); UREA NITROGEN, BLOOD 23 mg/dL (7-18)
[2018-03-14 12:36] LABS: ALANINE AMINOTRANSFERASE 18 U/L (12-78); ALBUMIN 3.2 g/dL (3.4-5.0); ALCOHOL, BLOOD < 3 mg/dL (0-0); ALKALINE PHOSPHATASE 93 U/L (46-116); ASPARTATE AMINOTRANSFERASE 20 U/L (15-37); BILIRUBIN,DIRECT 0.1 mg/dL (0.0-0.2); BILIRUBIN,TOTAL 0.3 mg/dL (0.2-1.0)
[2018-03-14 12:37] LABS: SALICYLATE 0.7 mg/dL (2.8-20.0)
[2018-03-14 12:51] LABS: APPEARANCE,URINE Clear (CLEAR); BILIRUBIN,URINE Negative (NEGATIVE); BLOOD, URINE Small Ery/uL (NEGATIVE); COLOR,URINE Yellow (YELLOW); KETONES,URINE Trace (NEGATIVE); LEUKOCYTE ESTERASE ,URINE Small (NEGATIVE); NITRITE, URINE Negative (NEGATIVE); PH,URINE 5.5 (5.0-8.0); PROTEIN,URINE Trace mg/dl (NEGATIVE); UGLUCOSE Negative (NEGATIVE); UROBILINOGEN,URINE 0.2 EU/dL (0.2)
[2018-03-14 12:57] LABS: ACETAMINOPHEN 0 ug/ml (10-30)
[2018-03-14 13:13] LABS: BACTERIA,URINE Few /HPF (None Seen); SQUAMOUS EPITHELIAL CELL,UR Few /HPF (None Seen)
--- NOTE | 2018-03-14 13:23 | NUR ---
PAGED VIRGINIE FOR PSYCH EVAL
--- NOTE | 2018-03-14 13:27 | NUR ---
CALLED KITCHEN FOR FOOD TRAY
--- NOTE | 2018-03-14 14:12 | NUR ---
SARAH AT BS.
--- NOTE | 2018-03-14 14:34 | NUR ---
[facility] [phone]
--- NOTE | 2018-03-14 14:52 | NUR ---
ASSIGNED TO GPS #: [id number], DX: PSYCHOSIS NOS, AND ACCEPTING PSYCHIATRIST: DR GERBER
[2018-03-14 16:00] VITALS: BP 150/82
[2018-03-14] MEDS ORDERED: TEMAZEPAM 7.5 MG CAPSULE PO PRN (16:00)
[2018-03-14] MEDS ORDERED: ACETAMINOPHEN 325 MG TABLET PO PRN (16:00)
[2018-03-14] MEDS ORDERED: LORAZEPAM 0.5 MG TABLET PO PRN (16:00)
[2018-03-14] MEDS ORDERED: MAGNESIUM HYDROXIDE 30 ML UDC PO PRN (16:00)
[2018-03-14] MEDS ORDERED: MAG HYDROX/AL HYDROX/SIMETH 30 ML UDC PO PRN (16:00)
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
--- NOTE | 2018-03-14 19:30 | NUR ---
GPS RN NOTE, RECEIVED PATIENT AWAKE AND IN BED, NO S/S OR COMPLAINTS OF PAIN AT THIS TIME. PATIENT IS DISPLAYING NO S/S OF APPARENT DISTRESS AT THIS TIME. PATIENT BREATHING IS UNLABORED WITH EQUAL RISE AND FALL CHEST. PATIENT IS ALERT AND ORIENTED X 1 ON ROOM AIR WITH A SPO2 98% . PATIENT IS SAMI SPEAKING. PATIENT IS CONFUSED, SUSPICIOUS, PARANOID, DISORGANIZED, COOPERATIVE, ANXIOUS AT TIMES, AND NEEDS REDIRECTION. PATIENT DENIES SUICIDE IDEATIONS AND HOMICIDAL IDEATIONS AT THIS TIME. PATIENT EDUCATED ON THE USE OF THE CALL BEL. PATIENT BED SIDE RAILS UP X 2 FOR SAFETY, BED IS LOCKED AND LOW, WILL CONTINUE TO MONITOR AND MAINTAIN SAFETY WITH THE HELP OF SAFE.
[2018-03-14 21:29] VITALS: BP 123/71
--- NOTE | 2018-03-14 23:11 | NUR ---
GPS RN NOTE, PATIENT DAUGHTER PATRICK ([phone] INFORMED ME THAT SHE WOULD LIKE DR TREVIÑO TO BE HER MOTHERS PSYCHIATRIST NOT DR GERBER. PATRICK ALSO INFORMED ME THAT THIS PATIENT GETS DELUSIONAL WITH ATIVAN AND RESTORIL. PAGED DR GERBER AND INFORMED HIM OF MY FINDINGS. DR GERBER ORDERED TO STOP RESTORIL 7.5MG PO HS PRN AND TO STOP ATIVAN 1MG PO Q4HR PRN. DR SMITH ORDERED TO GIVE HYDROXYZINE PAMOATE 25MG PO Q4HR PRN NOT TO EXCEED 100MG IN [address] SMITH ALSO ORDERED TO GIVE AMBIEN 5MG PO HS PRN. ALL ORDERS NOTED AND CARRIED OUT. WILL CONTINUE TO MONITOR THIS PATIENT.
--- NOTE | 2018-03-15 08:30 | NUR ---
pt in bed awake, alert, oriented x1, verbally responsive, French speaker only, refusing labs tried to make her understand but unable to comprehense, will continue monitoring and try later for labs.
[2018-03-15 09:35] VITALS: BP 149/66
--- NOTE | 2018-03-15 12:45 | NUR ---
Pt in room labs in unit to draw labs, pt still refused, pt is disoriented and confused, trying to get close to door to scape, awol risk, will continue monitoring behavior.
[2018-03-15] MEDS: hydrOXYzine PAMOATE 25 MG CAPSULE PO PRN ×3 (13:54→20:01)
--- NOTE | 2018-03-15 14:00 | NUR ---
Pt screaming and yelling continue monitoring, vistaril 25 mg po given.
--- NOTE | 2018-03-15 16:14 | NUR ---
INITIAL DISCHARGE PLAN: Per pts daughter Alejandra [phone] patient will need SNF placement. SW will help form a safe and proper discharge in collaboration with MD and pts daughter.
--- NOTE | 2018-03-15 16:14 | NUR ---
Pts daughter Alejandra [phone] is requesting MD change due to her not being happy with pts psychiatric treatment SW requested that pts daughter email a written statement with her request.
--- NOTE | 2018-03-15 16:19 | NUR ---
SW received email from pts daughter Alejandra stating the following: "Dear Mrs. Bridgette Kaufman. Per our conversation today, I'm requesting if my mother Janeth Clifford admitted on 03/14/[address] Perez. Last time she was there in January, I was concern about the way my mother was been evaluated by Dr. Perez, medication just keepd her more confuse and than usual. I had also mention she couldn't take Ativan or R...but is continue being in her chart. Please, if there is any possibility to change either Dr. Martinez or Declan Thank you in advance and appreciate your understanding. Alejandra Parra [phone]"
--- NOTE | 2018-03-15 17:28 | NUR ---
DR Martinez was called d/t pt has not have any psych meds and is confused, now is agrresive, going into other pt's room, and trying to open is at awol risk, place in chair for rest period and hit, kit, scrash staff, was called but since has not seen pt can not give any meds at this time will give vistaril po 25 mg will see if pt's behavior get better or worse, CN aware.
--- NOTE | 2018-03-15 17:56 | NUR ---
PT STILL SCREAMING, YELLING DR GERBER IN UNIT, TRIED TO GIVE HER VISTARIL 25 MG PO BUT PT REFUSED TO TAKE MEDS, AWARE OF PT'S BEHAVIOR.
[2018-03-15] MEDS: RIVASTIGMINE TARTRATE 1.5 MG CAPSULE PO SCH ×2 (18:30→20:01)
[2018-03-15] MEDS: ZOLPIDEM TARTRATE 5 MG TABLET PO PRN (20:02)
[2018-03-16 08:00] VITALS: BP 116/63
[2018-03-16] MEDS ORDERED: risperiDONE 1 MG TABLET PO SCH (09:00)
--- NOTE | 2018-03-16 10:00 | NUR ---
GPS/RN-NOTES PATIENT REFUSED TO SHOWER DESPITE ENCOURAGEMENT, PAPERBOARD MACHINE OPERATOR STAFF AND THE AUTO APPRAISER TRIED FOR SEVERAL TIMES BUT PATIENT WAS ARGUMENTATIVE AND STATED" I'M VERY SICK AND I DON'T WANT TO SHOWER". WILL OFFER SHOWER AGAIN LATER.
[2018-03-16 16:00] VITALS: BP 121/73
[2018-03-16] MEDS: RIVASTIGMINE TARTRATE 1.5 MG CAPSULE PO SCH (16:48)
[2018-03-16] MEDS: risperiDONE-M 0.5 MG TAB.RAPDIS PO SCH (16:49)
[2018-03-16] MEDS: BENZTROPINE MESYLATE (1 MG) 1 MG TABLET PO SCH (16:49)
[2018-03-16 19:01] LABS: CALCIUM, SERUM 8.6 mg/dL (8.5-10.1); CARBON DIOXIDE 23 mmol/L (21-32); CHLORIDE 106 mmol/L (98-107); GLUCOSE 91 mg/dL (74-106); POTASSIUM 3.9 mmol/L (3.5-5.1); SODIUM SERUM 141 mmol/L (136-145); UREA NITROGEN, BLOOD 26 mg/dL (7-18)
[2018-03-16 20:05] VITALS: BP 93/69
--- NOTE | 2018-03-16 20:10 | NUR ---
RN INITIAL NOTES: PT IN BED, NOTED TO BE RESTLESS, AGITATED, SAYING SHE'S MADDIE AND SOMEONE WOULD LIKE TO GO NEAR HER IN BED, FREQUENT REDIRECTION AND REORIENTATION PERFORMED, PT IS HOWEVER MEDICATION COMPLIANT,BUT AWOL RISK, ONLY LISTENS TO HER DAUGHTER, PT DENIES ANY SI/HI AT THIS TIME, PER FAMILY THEY WILL BE THE ONE TO GIVE SHOWER TO PT TOMORROW AM, PT IS CONTINENT, AMBULATORY, SAFETY PRECAUTIONS FOR FALL INITIATED, WILL CONTINUE MONITORING PT FOR SAFETY [id number] AND FOR ANY CHANGES IN BEHAVIOR
[2018-03-16 20:25] VITALS: BP 93/69
[2018-03-16] MEDS: hydrOXYzine PAMOATE 25 MG CAPSULE PO PRN (20:25)
--- NOTE | 2018-03-16 20:26 | NUR ---
PT VERY ANXIOUS, WONDERING AROUND THE HALLWAY GOING TO OTHER PT'S ROOM, REDIRECTED BACK TO HER ROOM MULTIPLE TIMES, BUT PT KEPT TRYING TO LEAVE THE ROOM, STATED SHE WANTS TO GO HOME, IN [place], ASKED FOR FURNITURE DECALS INSPECTOR AND EXPLAINED WHY SHE'S HERE IN THE HOSPITAL, PT WAS OFFERED FOOD AND JUICE, ATE 100%, PRN VISTARIL ADMINISTERED AT THIS TIME, VS TAKEN AND RECORDED
[2018-03-16 21:00] VITALS: BP 114/55
--- NOTE | 2018-03-16 21:23 | NUR ---
RN NOTES: RECEIVED CALL FROM PT'S DAUGHTER PATRICK, ASKING HOW HER MOTHER IS DOING, INFORMED ABOUT PT'S AGITATION, PT'S DAUGHTER REQUESTED TO GIVE SLEEPING PILL SPECIFICALLY AMBIEN AT NIGHT TO HELP HER MOTHER GET A GOOD NIGHT SLEEP, SHE STATED SHE'S WORRIED THAT HER MOTHER WILL HAVE A HARD TIME SLEEPING IF SHE DIDNT TAKE THIS MEDICATION.
[2018-03-16] MEDS: ZOLPIDEM TARTRATE 5 MG TABLET PO PRN (21:25)
--- NOTE | 2018-03-16 21:25 | NUR ---
CELIA MCCAULEY: PRJone MCCAULEY ADMINISTERED AT THIS TIME, TO HELP PT GET A GOOD NIGHT SLEEP
[2018-03-17 08:00] VITALS: BP 150/64
[2018-03-17] MEDS: BENZTROPINE MESYLATE (1 MG) 1 MG TABLET PO SCH ×2 (08:41→16:05)
[2018-03-17] MEDS: RIVASTIGMINE TARTRATE 1.5 MG CAPSULE PO SCH ×2 (08:41→16:05)
[2018-03-17] MEDS: risperiDONE-M 0.5 MG TAB.RAPDIS PO SCH ×2 (09:52→16:05)
[2018-03-17 16:00] VITALS: BP 116/69
--- NOTE | 2018-03-17 18:52 | NUR ---
RN-CO: Patient was placed on " LINE OF SIGHT" , PATIENT IS AWOL RISK, WANDERS FROM ROOM TO ROOM.
--- NOTE | 2018-03-17 19:15 | NUR ---
GPS RN OPENING NOTE Patient is AAOx1, ambulatory, talkative and restless. Patient has moments of anxiety and paranoia, needing frequent redirection/re-orienting. Patient appears well-kept. Patient currently has no signs of acute distress. Will continue to monitor.
[2018-03-17 20:00] VITALS: BP 129/83
[2018-03-17] MEDS: ZOLPIDEM TARTRATE 5 MG TABLET PO PRN (20:30)
--- NOTE | 2018-03-17 20:30 | NUR ---
GPS RN NOTE - Ambien Patient was refusing to stay in her room and frequently attempting to ambulate the hallways. Patient was brought two magazines to page through in bed as a distraction, but patient became quickly disinterested. Patient also became anxious and paranoid, stating that she had to leave the room to call the police because a man was outside. I attempted to reorient the patient and encouraged/demonstrated deep breathing exercises. I asked the patient if she would like to take a medication to help her sleep, and the patient was agreeable. 5mg PO Ambien was provided as ordered for prn use. Will continue to monitor.
[2018-03-18 08:00] VITALS: BP 100/80
[2018-03-18] MEDS: BENZTROPINE MESYLATE (1 MG) 1 MG TABLET PO SCH ×2 (08:22→16:44)
[2018-03-18] MEDS: risperiDONE-M 0.5 MG TAB.RAPDIS PO SCH ×2 (08:22→16:43)
[2018-03-18] MEDS: RIVASTIGMINE TARTRATE 1.5 MG CAPSULE PO SCH ×2 (08:23→16:43)
[2018-03-18 16:16] VITALS: BP 129/70
--- NOTE | 2018-03-18 19:30 | NUR ---
RN NOTES RECEIVED PATIENT AMBULATING IN DINING ROOM. AO X 1, ABLE TO MAKE NEEDS KNOWN. NO ACUTE DISTRESS NOTED. DENIES ANY PAIN AT THIS TIME. SAFETY REMINDERS GIVEN. PROVIDED WITH A LOW BED WITH BILATERAL UPPER SIDE RAILS UP. CALL ROJAS WITHIN EASY REACH. WILL CONTINUE TO MONITOR.
[2018-03-18 20:00] VITALS: BP 117/74
[2018-03-18 20:11] VITALS: BP 117/74
--- NOTE | 2018-03-19 06:34 | NUR ---
RN NOTES PATIENT ASLEEP, EASILY AROUSABLE. RESPIRATIONS EVEN. NO SIGNS OF PAIN NOTED. NEEDS ATTENDED. KEPT CLEAN, DRY, AND COMFORTABLE. SAFETY PRECAUTIONS AND COMFORT MEASURES IN PLACE. WILL GIVE REPORT TO DAY SHIFT FOR CONTINUITY OF CARE.
[2018-03-19 08:00] VITALS: BP 109/71
[2018-03-19 08:06] LABS: CARBON DIOXIDE 27 mmol/L (21-32); CHLORIDE 109 mmol/L (98-107); GLUCOSE 92 mg/dL (74-106); POTASSIUM 4.3 mmol/L (3.5-5.1); SODIUM SERUM 142 mmol/L (136-145); UREA NITROGEN, BLOOD 15 mg/dL (7-18)
[2018-03-19] MEDS: BENZTROPINE MESYLATE (1 MG) 1 MG TABLET PO SCH ×2 (08:41→16:53)
[2018-03-19] MEDS: risperiDONE-M 0.5 MG TAB.RAPDIS PO SCH ×2 (08:41→16:53)
[2018-03-19] MEDS: RIVASTIGMINE TARTRATE 1.5 MG CAPSULE PO SCH ×2 (08:41→16:53)
--- NOTE | 2018-03-19 09:31 | NUR ---
YUDY faxed SNF referral to [facility] programs director at [facility] Address: [address], [place] [address] for review.
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
[2018-03-19 16:17] VITALS: BP 114/60
[2018-03-19 20:15] VITALS: BP 135/55
[2018-03-19] MEDS: ZOLPIDEM TARTRATE 5 MG TABLET PO PRN (22:00)
[2018-03-20 08:24] VITALS: BP 113/72
[2018-03-20] MEDS: RIVASTIGMINE TARTRATE 1.5 MG CAPSULE PO SCH ×2 (09:02→16:29)
[2018-03-20] MEDS: risperiDONE-M 0.5 MG TAB.RAPDIS PO SCH ×2 (09:02→16:29)
[2018-03-20] MEDS: BENZTROPINE MESYLATE (1 MG) 1 MG TABLET PO SCH ×2 (09:03→16:29)
[2018-03-20 16:18] VITALS: BP 119/70
[2018-03-20 20:23] VITALS: BP 124/78
[2018-03-20] MEDS: ZOLPIDEM TARTRATE 5 MG TABLET PO PRN (22:06)
[2018-03-21 08:00] VITALS: BP 121/67
[2018-03-21] MEDS: risperiDONE-M 0.5 MG TAB.RAPDIS PO SCH ×2 (10:02→18:14)
[2018-03-21] MEDS: RIVASTIGMINE TARTRATE 1.5 MG CAPSULE PO SCH ×2 (10:03→18:14)
[2018-03-21] MEDS: BENZTROPINE MESYLATE (1 MG) 1 MG TABLET PO SCH ×2 (10:03→18:14)
[2018-03-21 16:00] VITALS: BP 113/65
--- NOTE | 2018-03-21 20:00 | NUR ---
GPS RN NOTE, RECEIVED PATIENT AWAKE AND IN BED, NO S/S OR COMPLAINTS OF PAIN AT THIS TIME. PATIENT IS DISPLAYING NO S/S OF APPARENT DISTRESS AT THIS TIME. PATIENT BREATHING IS UNLABORED WITH EQUAL RISE AND FALL CHEST. PATIENT IS ALERT AND ORIENTED X 1 ON ROOM AIR WITH A SPO2 95% . PATIENT IS SUSPICIOUS, PARANOID, CONFUSED, DISORGANIZED, COOPERATIVE, ANXIOUS AT TIMES, AND NEEDS REDIRECTION. PATIENT DENIES SUICIDE IDEATIONS AND HOMICIDAL IDEATIONS AT THIS TIME. PATIENT EDUCATED ON THE USE OF THE CALL ROJAS. PATIENT BED SIDE RAILS UP X 2 FOR SAFETY, BED IS LOCKED, LOW, AND I WILL CONTINUE TO MONITOR AND MAINTAIN SAFETY WITH THE HELP OF STAFF.
[2018-03-21 20:30] VITALS: BP 123/68
[2018-03-22 08:00] VITALS: BP 102/53
[2018-03-22] MEDS: RIVASTIGMINE TARTRATE 1.5 MG CAPSULE PO SCH ×2 (08:27→16:18)
[2018-03-22] MEDS: risperiDONE-M 0.5 MG TAB.RAPDIS PO SCH ×2 (08:27→16:18)
[2018-03-22] MEDS: BENZTROPINE MESYLATE (1 MG) 1 MG TABLET PO SCH ×2 (08:27→16:18)
--- NOTE | 2018-03-22 14:06 | NUR ---
DR. TREVIÑO GAVE AN ORDER 1:1 ON DAY SHIFT FOR HIGH FALL RISK AND LINE SHIFT AT NIGHT.
[2018-03-22] MEDS: DIVALPROEX SODIUM 125 MG TABLET.DR PO SCH ×2 (14:08→20:37)
[2018-03-22 16:00] VITALS: BP 150/71
[2018-03-22 20:00] VITALS: BP 94/68
[2018-03-23 08:00] VITALS: BP 102/59
[2018-03-23] MEDS: RIVASTIGMINE TARTRATE 1.5 MG CAPSULE PO SCH ×2 (08:23→16:01)
[2018-03-23] MEDS: risperiDONE-M 0.5 MG TAB.RAPDIS PO SCH ×2 (08:23→16:01)
[2018-03-23] MEDS: DIVALPROEX SODIUM 125 MG TABLET.DR PO SCH ×2 (08:23→21:00)
[2018-03-23] MEDS: BENZTROPINE MESYLATE (1 MG) 1 MG TABLET PO SCH ×2 (08:23→16:01)
[2018-03-23 16:11] VITALS: BP 110/66
[2018-03-24 08:17] VITALS: BP 116/61
[2018-03-24] MEDS: DIVALPROEX SODIUM 125 MG TABLET.DR PO SCH ×2 (08:42→20:44)
[2018-03-24] MEDS: risperiDONE-M 0.5 MG TAB.RAPDIS PO SCH ×2 (08:42→16:32)
[2018-03-24] MEDS: BENZTROPINE MESYLATE (1 MG) 1 MG TABLET PO SCH ×2 (08:42→16:32)
[2018-03-24] MEDS: RIVASTIGMINE TARTRATE 1.5 MG CAPSULE PO SCH ×2 (08:42→16:32)
--- NOTE | 2018-03-24 10:00 | NUR ---
GPS/RN-NOTES PATIENT'S DTR (PATRICK) AND HER BROTHER (PT. SON) IN THE UNIT THEY ARE HELPING PATIENT WITH THE SHOWER.
--- NOTE | 2018-03-24 14:07 | NUR ---
GPS/RN-NOTES RECEIVED A CALL FROM PATIENT'S DTR PATRICK STATING THAT THE PLACE WHERE HER MOM WILL STAY IS NOT READY YET DUE TO SOME PROBLEMS AND REQUESTING IF HER MOM CAN STAY TILL MONDAY. DR. TREVIÑO MADE AWARE AND AGREED THAT ITS OK PATIENT WILL STAY UNTIL MONDAY.
[2018-03-24 16:00] VITALS: BP 104/72
[2018-03-24 20:00] VITALS: BP 92/65
[2018-03-25 07:31] LABS: BASOPHILS % (AUTO) 0.4 % (0.0-2.0); EOSINOPHILS % (AUTO) 1.5 % (0.0-6.0); HEMATOCRIT 34 % (33-45); HEMOGLOBIN 11.5 g/dL (11.5-14.8); LYMPHOCYTES % (AUTO) 46.4 % (20.0-44.0); MEAN CORPUSCULAR HEMOGLOBIN 32 PG (26.0-33.0); MEAN CORPUSCULAR HGB CONC 34 g/dl (31.0-36.0); MEAN CORPUSCULAR VOLUME 93 fL (82-100); MONOCYTES # (AUTO) 0.3 /CMM (0.1-1.30); MONOCYTES % (AUTO) 7.4 % (2.0-12.0); NEUTROPHILS # (AUTO) 1.9 /CMM (1.8-8.9); NEUTROPHILS % (AUTO) 44.3 % (43.0-81.0); PLATELET COUNT (AUTO) 170 /CMM (150-450); RDW COEFFICIENT OF VARIATION 13.5 (11.5-15.0); RED BLOOD CELL COUNT(AUTO) 3.66 MIL/uL (4.0-5.2); WHITE BLOOD COUNT (AUTO) 4.3 K/uL (4.3-11.0)
[2018-03-25 07:54] LABS: VALPROIC ACID 22 ug/mL (50-100)
[2018-03-25 07:59] LABS: ALANINE AMINOTRANSFERASE 17 U/L (12-78); ALBUMIN 2.9 g/dL (3.4-5.0); ALKALINE PHOSPHATASE 89 U/L (46-116); ASPARTATE AMINOTRANSFERASE 17 U/L (15-37); BILIRUBIN,TOTAL 0.3 mg/dL (0.2-1.0); CALCIUM, SERUM 8.2 mg/dL (8.5-10.1); CARBON DIOXIDE 25 mmol/L (21-32); CHLORIDE 107 mmol/L (98-107); GLUCOSE 92 mg/dL (74-106); MAGNESIUM 1.6 mg/dL (1.8-2.4); POTASSIUM 4.1 mmol/L (3.5-5.1); SODIUM SERUM 140 mmol/L (136-145); TOTAL PROTEIN, SERUM 6.1 g/dL (6.4-8.2); UREA NITROGEN, BLOOD 26 mg/dL (7-18)
[2018-03-25 09:20] VITALS: BP 101/56
[2018-03-25] MEDS: RIVASTIGMINE TARTRATE 1.5 MG CAPSULE PO SCH ×2 (09:21→17:59)
[2018-03-25] MEDS: risperiDONE-M 0.5 MG TAB.RAPDIS PO SCH ×2 (09:21→17:59)
[2018-03-25] MEDS: BENZTROPINE MESYLATE (1 MG) 1 MG TABLET PO SCH ×2 (09:21→17:59)
[2018-03-25] MEDS: hydrOXYzine PAMOATE 25 MG CAPSULE PO PRN (09:21)
[2018-03-25] MEDS: DIVALPROEX SODIUM 125 MG TABLET.DR PO SCH ×2 (09:21→20:55)
--- NOTE | 2018-03-25 09:21 | NUR ---
RN NOTES ADMINISTERED VISTARIL 25 MG PO PRN FOR ANXIETY, PRESCRIBED, CONTINUED MONITORING.
[2018-03-25] MEDS ORDERED: MAGNESIUM OXIDE 400 MG TABLET PO ONE (10:30)
[2018-03-25 16:00] VITALS: BP 102/66
--- NOTE | 2018-03-25 20:00 | NUR ---
GPS RN NOTE: RECEIVED PATIENT IN ROOM WITH FAMILY VISITOR, CALM AND POLITE UPON APPROACH, DENIES SI, HI, OR PAIN AT THIS TIME. WILL CONTINUE TO MONITOR Q15MIN ROUNDS FOR SAFETY AND BEHAVIOR.
[2018-03-25 21:17] VITALS: BP 125/65
[2018-03-26 08:00] VITALS: BP 91/56
[2018-03-26] MEDS: BENZTROPINE MESYLATE (1 MG) 1 MG TABLET PO SCH (08:38)
[2018-03-26] MEDS: risperiDONE-M 0.5 MG TAB.RAPDIS PO SCH (08:38)
[2018-03-26] MEDS: DIVALPROEX SODIUM 125 MG TABLET.DR PO SCH (08:38)
[2018-03-26] MEDS: RIVASTIGMINE TARTRATE 1.5 MG CAPSULE PO SCH (08:59)
--- NOTE | 2018-03-26 09:27 | NUR ---
YUDY received a phone call from Pts daughter Alejandra [phone] on this present day of discharge stating that she did not want pt discharged to [facility] due to her not liking the facility. YUDY informed pts daughter that she was made aware of placement on Monday March 19, 2018 and that she had agreed with placement and was happy that facility was close to her home. SW explained that pt is scheduled for discharge on this present day and that interfering with discharge due to her not liking the facility was not a viable reason to prolong discharge when pt has already been medically and psychiatrically cleared by MD's for discharge on this present day. Pts daughter stated that she would call SW back.
--- NOTE | 2018-03-26 12:41 | NUR ---
SW received a phone call from Pts daughter Alejandra [phone] who stated pt will be going home instead of the retirement. Per pts daughter she stated pts son's Adrien [phone] would be picking pt up at 2pm.
--- NOTE | 2018-03-26 12:46 | NUR ---
Xavi contacted APS marriage and family social worker Edgard Archuleta [phone] to inform him of pts discharge home. Per APS marriage and family social worker he stated home is a safe environment for pt to discharged to.
--- NOTE | 2018-03-26 13:05 | NUR ---
GPS/RN PATIENT CLEARED FOR DISCHARGE HOME BY DR TREVIÑO AND DR CHEATHAM. MEDICATIONS RECONCILED, PSYCHIATRIC PRESCRIPTIONS INCLUDED IN PACKET. AFTER CARE INSTRUCTIONS, EXIT CARE AND MEDICATIONS EXPLAINED T PATIENT AND SON, VERBALIZED UNDERSTANDING. BELONGINGS RETURNED, PATIENT DENIES SI/HI/AH UPON DISCHARGE, PSYCHIATRIC TREATMENT PLANS MET, SKIN INTACT. LEFT UNIT CALM, COOPERATIVE, NO DISTRESS NOTED WITH FARM SUPERVISOR AND SON AT SIDE.
--- NOTE | 2018-03-26 13:35 | NUR ---
DISCHARGE NOTE: Pt was discharged at 1:00pm via private vehicle by pts son Zachary [phone]. Pt will return home to [facility] [address] [place] [id number]. Pts daughter Alejandra [phone] has arranged and agrees with discharge plan. Pts mood was pleasant with congruent mood. Pt denied suicidal/homicidal ideations and denied visual/auditory hallucinations. Pts daughter will contact Psychiatrist: Dr. Janet Martinez [address] [address] [phone] for a follow up appointment and schedule a follow up appointment with Heating And Ventilating Drafter: Dr. Christ Weinstein [address] [place] [phone]. The multidisciplinary exitcare form was done, printed, signed, and given to the patient.
== END 2018-03-26 13:10 | disposition home or self-care (01) | DRG 885 ==
LOC: ER 11:55 → GPS 15:06
PROVIDERS: ADMIT Psychiatry & Neurology Psychosomatic Medicine; ATTEND Psychiatry & Neurology Psychosomatic Medicine
DX: F25.0 Schizoaffective disorder, bipolar type (principal); F01.50 Vascular dementia, unspecified severity, without behavioral disturbance, psychotic disturbance, mood disturbance, and anxiety; N17.0 Acute kidney failure with tubular necrosis; E44.0 Moderate protein-calorie malnutrition; F29 Unspecified psychosis not due to a substance or known physiological condition; F03.90 Unspecified dementia, unspecified severity, without behavioral disturbance, psychotic disturbance, mood disturbance, and anxiety; Z90.710 Acquired absence of both cervix and uterus; Z79.899 Other long term (current) drug therapy; Z88.8 Allergy status to other drugs, medicaments and biological substances; Z73.6 Limitation of activities due to disability
CPT/HCPCS: 36415; 80048-TC; 80053-TC; 80076-TC; 80164-TC; 80305; 81000-TC; 83735-TC; 85025-TC; 87081-TC; A4606; G0480; Q0177; Z7610